=== PATIENT | male | born 1985 | race African-American/Black ===

== ENCOUNTER 2017-06-03 15:16 | Emergency (ER) | payer MEDICAID ==
[~2017-06-03] VITALS: Ht 175.3 cm; Wt 79.0 kg
[2017-06-03 19:03] VITALS: BP 106/63
== END 2017-06-03 20:23 | disposition home or self-care (01) ==
LOC: ER 17:55
DX: G89.29 Other chronic pain (principal); M25.531 Pain in right wrist; Z98.890 Other specified postprocedural states
CPT/HCPCS: 73110; 99284